=== PATIENT | male | born 1960 | race Caucasian/White ===

== ENCOUNTER 2016-08-02 10:08 | Day surgery (SDC) | payer OTHER ==
[~2016-08-02 10:08] MED LIST: cefOXitin SODIUM 1 GM in D5W 50 ML IV ONE
[2016-08-02] MEDS ORDERED: LIDOCAINE 1% 2 ML INJ ONE (10:19)
[2016-08-02] MEDS ORDERED: BUPIVACAINE 0.5% 30 ML SDV ONE (10:23)
[2016-08-02] MEDS ORDERED: PROPOFOL 200 MG/20 ML VIAL ONE ×2 (10:41→11:37)
[2016-08-02] MEDS ORDERED: fentaNYL 100 MCG/2 ML INJ ONE (10:41)
[2016-08-02] MEDS ORDERED: LR 1,000 ML IV ONE (11:01)
[2016-08-02 11:10] LABS: % IMMATURE GRANULYOCYTES 0.2 % (0.0-1.1); ABSOLUTE IMMATURE GRANULOCYTES 0.01 10^3/uL (0.00-0.10); ADD DIFF? NO; ADD MORPH? NO; ADD SCAN? NO; ATYPICAL LYMPHOCYTE FLAG 0 (0-99); FRAGMENT RBC FLAG 20 (0-99); HEMATOCRIT 33.9 % (40.0-51.0); HEMOGLOBIN 11.2 g/dL (13.7-17.5); LEFT SHIFT FLG 30 (0-99); LIPEMIA HEMOLYSIS FLAG 80 (0-99); MEAN CELL HEMOGLOBIN 33.5 pg (27.9-34.1); MEAN CELL VOLUME 101.5 fL (81.5-99.8); MEAN PLATELET VOLUME 10.5 fL (8.7-11.7); PLATELET CLUMPS FLAG 10 (0-99); PLATELET COUNT 223 10^3/uL (150-400); RED BLOOD CELL COUNT 3.34 10^6/uL (4.40-6.38); RED CELL DISTRIBUTION WIDTH 17.5 % (11.5-15.2)
[2016-08-02] MEDS ORDERED: ROCURONIUM 50 MG/5 ML VIAL ONE ×2 (11:13→12:18)
[2016-08-02] MEDS ORDERED: NS 500 ML IV ONE (11:16)
[2016-08-02 11:35] LABS: ALANINE AMINOTRANSFERASE 31 IU/L (21-72); ALBUMIN 4.1 g/dL (3.5-5.0); ALKALINE PHOSPHATASE 117 IU/L (38-126); ANION GAP 12 mEq/L (8-16); ASPARTATE AMINOTRANSFERASE 19 IU/L (17-59); BILIRUBIN,TOTAL 0.6 mg/dL (0.1-1.4); CALCIUM 9.2 mg/dL (8.5-10.4); CARBON DIOXIDE 19 mEq/l (22-31); CHLORIDE 109 mEq/L (97-110); CREATININE 5.9 mg/dL (0.7-1.3); GLOMERULAR FILTRATION RATE 10; GLUCOSE 90 mg/dL (70-100); POTASSIUM 5.2 mEq/L (3.5-5.2); SODIUM 140 mEq/L (134-144); TOTAL PROTEIN 6.9 g/dL (6.3-8.2)
[2016-08-02] MEDS ORDERED: ONDANSETRON 4 MG/2 ML VIAL ONE (12:18)
[2016-08-02] MEDS ORDERED: SUGAMMADEX SODIUM 200 MG/2 ML VIAL IVP ONE ×3 (12:18)
[2016-08-02] MEDS ORDERED: DEXAMETHASONE 4 MG/ML VIAL ONE (12:18)
[2016-08-02] MEDS ORDERED: HYDROCODONE/APAP 5/325 TAB ONE (13:13)
--- NOTE | 2016-08-04 04:12 | GOP ---
[f rep st] OPERATIVE REPORT DATE OF OPERATION: 08/02/2016 SURGEON: Samuel Jacobs MD PRESIDENT & CEO: Kristine Jeffries, RODNEY. ANESTHESIA: Dr. Dexter. PREOPERATIVE DIAGNOSIS: Chronic renal failure and polycystic kidney disease. POSTOPERATIVE DIAGNOSIS: Chronic renal failure and polycystic kidney disease. PROCEDURE PERFORMED: Laparoscopic placement of peritoneal dialysis catheter. FINDINGS: The patient was found to have good flow and good position of the catheter. DESCRIPTION OF PROCEDURE: The patient was taken to the operating room where he received satisfactor y general endotracheal anesthesia by Dr. Dexter. He was placed in a supine position, prepped and julisa ped in the usual sterile fashion. A transverse incision was made in the previous old scar. Dissect ion carried down to the fascia. Veress needle was introduced. Pneumoperitoneum was established. A 10 mm trocar was introduced. Laparoscope introduced. Good visualization was obtained. A 2nd troc ar was placed in the left lower quadrant of the previous exit site. Jermyn neck catheter was then int roduced and positioned in the deepest part of the pelvis. A 10 trocar was removed. Fascia was close d over with a Dacron pledget with 0 Vicryl interrupted sutures. The wound was infiltrated with 0.25 % Marcaine. Subcu was closed with 3-0 Vicryl and skin with a 4-0 Monocryl subcuticular stitch. The dialysis catheter was brought out through the other trocar site. It was filled with 500 cc of sali ne and then reverse flow recovered over 400 cc of that. Without difficulties, the catheter was affi xed to its regular permanent attachments. He tolerated the procedure quite well. Blood loss neglig ible. All wounds were infiltrated with 0.5% Marcaine. There were no complications. /[id number]/MODL
== END 2016-08-02 13:45 | disposition home or self-care (01) ==
LOC: FSGY 10:08
PROVIDERS: ATTEND Surgery
PROC: 0W1 Anatomical Regions, General, Bypass (ICD-10-PCS; principal; 2016-08-02 12:00)
DX: N18.4 Chronic kidney disease, stage 4 (severe) (principal); C90.00 Multiple myeloma not having achieved remission; E21.3 Hyperparathyroidism, unspecified
CPT/HCPCS: C1750; J0697; J1100; J1642; J2405; J2704; J3010